=== PATIENT | female | born 1965 | race African-American/Black ===

== ENCOUNTER 2022-03-10 16:21 | Inpatient (IN) | payer MEDICARE, OTHER ==
[2022-03-10] MEDS ORDERED: Dextrose 5% in Water 1,000 ML IV PRN (18:48)
[2022-03-10] MEDS ORDERED: Dextrose 50% Abboject 50 ML SYRINGE SLOW IVP PRN (18:48)
[2022-03-10] MEDS ORDERED: Ondansetron PF 4 MG/2 ML Vial IVP PRN (18:48)
[2022-03-10] MEDS ORDERED: TETANUS, DIPHTHERIA TOX,ADULT (TDVAX) 0.5 ML VIAL IM ONE (18:48)
[2022-03-10] MEDS ORDERED: NOREPINEPHRINE 8 MG/250 ML-D5W 250 ML IVPB SCH (19:15)
[2022-03-10] MEDS: Piperacillin/Tazobactam 3.375 GM in Sodium Chloride 0.9% 100 ML IVPB SCH (20:58)
[2022-03-10] MEDS: Sodium Chloride 0.9% 1,000 ML IV SCH (20:59)
[2022-03-10] MEDS: Famotidine/PF 20 mg/2ml Vial SLOW IVP SCH (21:06)
[2022-03-11] MEDS: Morphine 2 MG/ML VIAL SLOW IVP PRN ×3 (01:26→07:47)
[2022-03-11] MEDS: Piperacillin/Tazobactam 3.375 GM in Sodium Chloride 0.9% 100 ML IVPB SCH ×3 (03:32→20:30)
[2022-03-11 04:47] LABS: Hemoglobin 10.2 g/dL (12.0-16.0); Mean Corpuscular HGB CONC 30.9 g/dL (32.0-36.0); Mean Corpuscular Hemoglobin 25.5 pg (27.0-31.0); Mean Corpuscular Volume 82.8 fl (78.0-98.0); Mean Platelet Volume 9.5 fL (7.4-10.4); Platelet Count 235 10x3/uL (130-400); RBC Distribution Width 16.6 % (11.5-14.5); Red Blood Cell (RBC) Count 3.98 mill/uL (4.20-5.40); White Blood Cell (WBC) Count 11.6 10x3/uL (4.8-10.8)
[2022-03-11 05:00] LABS: ALT (SGPT) 1014 U/L (8-55); AST (SGOT) 1208 U/L (5-34); Albumin 3.2 g/dL (3.5-5.0); Alkaline Phosphatase 442 U/L (40-110); Anion Gap 13 mmol/L (10-20); BUN (Urea Nitrogen) 16 mg/dL (9.8-20.1); Bilirubin, Total 3.6 mg/dL (0.2-1.2); Calc. Creatinine Clearance 94 mL/min (70-130); Carbon Dioxide 24 mmol/L (22-29); Chloride 104 mmol/L (98-107); Estimated GFR 71; Glucose 86 mg/dL (70-105); Potassium 4.1 mmol/L (3.5-5.1); Protein, Total 6.2 g/dL (6.0-8.3); Sodium 137 mmol/L (136-145)
[2022-03-11] MEDS: Sodium Chloride 0.9% 1,000 ML IV SCH ×3 (05:13→20:33)
[2022-03-11 05:29] VITALS: BMI 36.8
[2022-03-11 05:56] LABS: Band 11 % (5-11); Hypochromia SLIGHT = 6-15 cells (100X) (0-5/hpf); Lymphocytes 14 % (21-51); MDiff Complete? YES; Monocytes 2 % (0-10); Neutrophil 73 % (42-75); Platelet Morphology Comment Appears Adequate
[2022-03-11] MEDS ORDERED: Acetaminophen 325 MG TAB PO PRN (07:23)
[2022-03-11] MEDS: Famotidine/PF 20 mg/2ml Vial SLOW IVP SCH ×2 (07:47→20:31)
[2022-03-11] MEDS: Gabapentin 400 MG CAP PO SCH ×3 (07:48→20:30)
[2022-03-11] MEDS ORDERED: Bupivacaine/Epinephrine 0.25% 30 ML VIAL ONE (11:41)
[2022-03-11] MEDS ORDERED: Iopamidol 30 ML ONE (11:41)
[2022-03-11] MEDS ORDERED: Fentanyl 250 MCG/5 ML VIAL ONE (11:49)
[2022-03-11] MEDS ORDERED: Piperacillin/Tazobactam 3.375 GM VIAL ONE (12:08)
[2022-03-11] MEDS ORDERED: Sodium Chloride 0.9% 100 ML ONE (12:08)
[2022-03-11] MEDS ORDERED: PROPOFOL 200 MG/20 ML VIAL ONE (12:22)
[2022-03-11] MEDS ORDERED: Lidocaine 1% PF 5 ML VIAL ONE (12:22)
[2022-03-11] MEDS ORDERED: Glycopyrrolate 0.2 MG/ML 5 ML SYRINGE ONE (12:22)
[2022-03-11] MEDS ORDERED: Ondansetron PF 4 MG/2 ML Vial ONE (12:22)
[2022-03-11] MEDS ORDERED: Ketorolac Tromethamine 30 MG/ML VIAL ONE (12:22)
[2022-03-11] MEDS ORDERED: Rocuronium Bromide 10 MG/ML (10ML VIAL) ONE (12:22)
[2022-03-11] MEDS ORDERED: Dexamethasone 20 MG/5 ML VIAL ONE (12:22)
[2022-03-11] MEDS ORDERED: NEOSTIGMINE 3 MG/3 ML SYR 3 MG/3 ML SYRINGE ONE (12:22)
[2022-03-11] MEDS ORDERED: Fentanyl 100 MCG/2 ML VIAL ONE ×3 (14:40→15:45)
[2022-03-11] MEDS ORDERED: Promethazine HCl 25 MG/ML VIAL IM PRN (14:40)
[2022-03-11] MEDS ORDERED: Ondansetron HCl/PF 4 MG/2 ML Vial IVP PRN (14:40)
[2022-03-11] MEDS ORDERED: Promethazine HCl 25 MG/ML VIAL ONE (15:03)
[2022-03-11] MEDS: Acetaminophen/Codeine 30-300mg Tablet PO SCH ×2 (17:53→23:48)
[2022-03-11] MEDS: Acetaminophen 325 MG TAB PO SCH ×2 (17:53→23:48)
[2022-03-11] MEDS: Ketorolac Tromethamine 30 MG/ML VIAL IVP SCH ×2 (17:54→23:49)
[2022-03-11] MEDS: Acetaminophen/Codeine 30-300mg Tablet PO PRN (20:33)
[2022-03-12] MEDS ORDERED: Morphine 4 MG/ML VIAL SLOW IVP SCH (01:30)
[2022-03-12] MEDS: Sodium Chloride 0.9% 1,000 ML IV SCH (04:25)
[2022-03-12] MEDS: Piperacillin/Tazobactam 3.375 GM in Sodium Chloride 0.9% 100 ML IVPB SCH (04:25)
[2022-03-12] MEDS: Acetaminophen/Codeine 30-300mg Tablet PO SCH ×4 (05:18→23:38)
[2022-03-12] MEDS: Acetaminophen 325 MG TAB PO SCH ×4 (05:19→23:38)
[2022-03-12] MEDS: Ketorolac Tromethamine 30 MG/ML VIAL IVP SCH ×4 (05:20→23:38)
[2022-03-12 06:53] LABS: Hemoglobin 9.7 g/dL (12.0-16.0); Mean Corpuscular HGB CONC 31.2 g/dL (32.0-36.0); Mean Corpuscular Hemoglobin 25.7 pg (27.0-31.0); Mean Corpuscular Volume 82.2 fl (78.0-98.0); Mean Platelet Volume 9.6 fL (7.4-10.4); Platelet Count 205 10x3/uL (130-400); RBC Distribution Width 16.3 % (11.5-14.5); Red Blood Cell (RBC) Count 3.77 mill/uL (4.20-5.40); White Blood Cell (WBC) Count 6.6 10x3/uL (4.8-10.8)
[2022-03-12 07:12] LABS: ALT (SGPT) 588 U/L (8-55); AST (SGOT) 314 U/L (5-34); Albumin 3.2 g/dL (3.5-5.0); Alkaline Phosphatase 347 U/L (40-110); Anion Gap 9 mmol/L (10-20); BUN (Urea Nitrogen) 13 mg/dL (9.8-20.1); Bilirubin, Direct 2.5 mg/dL (0.1-0.3); Bilirubin, Total 3.2 mg/dL (0.2-1.2); Calc. Creatinine Clearance 109 mL/min (70-130); Calcium 8.3 mg/dL (7.8-10.44); Carbon Dioxide 25 mmol/L (22-29); Chloride 103 mmol/L (98-107); Estimated GFR 84; Glucose 115 mg/dL (70-105); Lipase 7 U/L (8-78); Magnesium 3.4 mg/dL (1.6-2.6); Phosphorus 3.6 mg/dL (2.3-4.7); Protein, Total 6.5 g/dL (6.0-8.3); Sodium 133 mmol/L (136-145)
[2022-03-12 08:09] LABS: Band 34 % (5-11); Hypochromia SLIGHT = 6-15 cells (100X) (0-5/hpf); Lymphocytes 6 % (21-51); MDiff Complete? YES; Monocytes 5 % (0-10); Neutrophil 55 % (42-75); Platelet Morphology Comment Appears Adequate; Polychromasia SLIGHT = 2-3 cells (100X) (0-2/hpf); Target Cells SLIGHT = 2-5 cells (100X) (0-1/hpf)
[2022-03-12] MEDS: Famotidine/PF 20 mg/2ml Vial SLOW IVP SCH ×2 (08:12→20:21)
[2022-03-12] MEDS ORDERED: Ciprofloxacin 500 MG TAB PO SCH (08:15)
[2022-03-12] MEDS: Gabapentin 400 MG CAP PO SCH ×3 (09:43→20:21)
[2022-03-12] MEDS: metroNIDAZOLE 500 MG TAB PO SCH ×3 (09:44→20:20)
[2022-03-12] MEDS: Saccharomyces boulardii 250 MG CAP PO SCH (09:44)
[2022-03-12] MEDS: Ciprofloxacin 500 MG TAB PO SCH (20:20)
[2022-03-13] MEDS: Acetaminophen/Codeine 30-300mg Tablet PO PRN (03:05)
[2022-03-13] MEDS: Ciprofloxacin 500 MG TAB PO SCH (05:15)
[2022-03-13] MEDS: Acetaminophen 325 MG TAB PO SCH ×2 (05:15→11:05)
[2022-03-13] MEDS: Acetaminophen/Codeine 30-300mg Tablet PO SCH ×2 (05:15→11:06)
[2022-03-13] MEDS: Ketorolac Tromethamine 30 MG/ML VIAL IVP SCH (05:15)
[2022-03-13 05:37] LABS: #Eosinphils 0.2 thou/uL (0.0-0.7); #Lymphocytes 0.7 thou/uL (1.20-3.40); #Monocytes 0.6 thou/uL (0.11-0.59); #Neutrophils 5.2 thou/uL (1.40-6.50); %Basophils 0.2 % (0.0-1.0); %Eosinophils 2.5 % (0.0-10.0); %Lymphocytes 10.7 % (21.0-51.0); %Monocytes 8.4 % (0.0-10.0); %Neutrophils 78.3 % (42.0-75.0); Hemoglobin 9.1 g/dL (12.0-16.0); Mean Corpuscular Hemoglobin 26.1 pg (27.0-31.0); Mean Corpuscular Volume 81.5 fl (78.0-98.0); Mean Platelet Volume 9.7 fL (7.4-10.4); Platelet Count 199 10x3/uL (130-400); RBC Distribution Width 16.3 % (11.5-14.5); Red Blood Cell (RBC) Count 3.48 mill/uL (4.20-5.40); White Blood Cell (WBC) Count 6.6 10x3/uL (4.8-10.8)
[2022-03-13 05:54] LABS: ALT (SGPT) 415 U/L (8-55); AST (SGOT) 133 U/L (5-34); Albumin 3.2 g/dL (3.5-5.0); Alkaline Phosphatase 286 U/L (40-110); Anion Gap 12 mmol/L (10-20); BUN (Urea Nitrogen) 12 mg/dL (9.8-20.1); Bilirubin, Total 1.9 mg/dL (0.2-1.2); Calc. Creatinine Clearance 108 mL/min (70-130); Calcium 8.5 mg/dL (7.8-10.44); Carbon Dioxide 24 mmol/L (22-29); Chloride 103 mmol/L (98-107); Estimated GFR 83; Globulin 3.4 g/dL (2.4-3.5); Glucose 90 mg/dL (70-105); Magnesium 3.1 mg/dL (1.6-2.6); Phosphorus 3.2 mg/dL (2.3-4.7); Potassium 3.7 mmol/L (3.5-5.1); Protein, Total 6.6 g/dL (6.0-8.3); Sodium 135 mmol/L (136-145)
[2022-03-13] MEDS: Saccharomyces boulardii 250 MG CAP PO SCH (09:12)
[2022-03-13] MEDS: Gabapentin 400 MG CAP PO SCH ×2 (09:12→15:10)
[2022-03-13] MEDS: Famotidine/PF 20 mg/2ml Vial SLOW IVP SCH (09:12)
[2022-03-13] MEDS: metroNIDAZOLE 500 MG TAB PO SCH ×2 (09:12→15:10)
[2022-03-13] MEDS ORDERED: PHOS-NAK 1 PKT PACK PO SCH (09:15)
[2022-03-13 12:56] VITALS: BP 119/78; TEMP 98
[2022-03-13] MEDS ORDERED: Senokot S 8.6-50 MG TAB PO SCH (21:00)
[2022-03-14] MEDS ORDERED: Polyethylene Glycol 3350 17 GM Packet PO SCH (09:00)
== END 2022-03-13 15:55 | disposition home or self-care (01) | DRG 853 ==
LOC: ERS 16:21 → CCU 17:59 → SURG A 03-11 13:00 → SJJU 03-11 16:07
PROVIDERS: ADMIT Surgery; ATTEND Surgery
PROC: 3E03329 Introduction of Other Anti-infective into Peripheral Vein, Percutaneous Approach (ICD-10-PCS; 2022-03-10)
PROC: 3E033XZ Introduction of Vasopressor into Peripheral Vein, Percutaneous Approach (ICD-10-PCS; 2022-03-10)
PROC: 0FT44ZZ Resection of Gallbladder, Percutaneous Endoscopic Approach (ICD-10-PCS; principal; 2022-03-11)
PROC: BF131ZZ Fluoroscopy of Gallbladder and Bile Ducts using Low Osmolar Contrast (ICD-10-PCS; 2022-03-11)
DX: A41.9 Sepsis, unspecified organism (principal); R65.21 Severe sepsis with septic shock; K80.00 Calculus of gallbladder with acute cholecystitis without obstruction; Z20.822 Contact with and (suspected) exposure to COVID-19; K82.A1 Gangrene of gallbladder in cholecystitis; G89.29 Other chronic pain; M54.9 Dorsalgia, unspecified; Z98.84 Bariatric surgery status; Z98.890 Other specified postprocedural states; Z79.899 Other long term (current) drug therapy; Z87.891 Personal history of nicotine dependence
CPT/HCPCS: 47532; 80048; 80053; 80076; 83690; 83735; 84100; 85025; 87077; 87186; 88304; 96374; C1713; C1889; J1100; J1650; J1885; J2270; J2272; J2405; J2543; J2550; J2704; J3010; J3490; J7050; Q9967; S0028